=== PATIENT | female | born 1995 | race Caucasian/White ===

== ENCOUNTER 2020-02-01 20:49 | Emergency (ER) | payer MEDICAID, SELFPAY ==
[2020-02-01 20:52] VITALS: BP 137/90; PULSE 109; RESP 18; TEMP 36.1; O2SAT 99; BMI 26.7
--- NOTE | 2020-02-01 21:06 | ED.VIS.GEN ---
History of Present Illness Chief Complaint: Other, Pain/Inj Informant: Patient Narrative: Patient states that the end of last month she delivered a baby boy. She has an IV site on the right lateral forearm. She was discharged home on the . She states that yesterday January 30 she began to have pain firmness and redness around the site. She is worried she might have a blood clot. She went to another facility but states she was not seen because it was so busy. She notes that she was anemic when she entered the hospital but does not recall any problems with her platelets. No known clotting disorders. She is currently taking iron dose. No fever. Past Medical History - Allergies and Home Meds Allergies/Adverse Reactions: Allergies acetaminophen [From Percocet] Allergy (Verified 02/01/20 20:54) Itching latex Allergy (Verified 02/01/20 20:54) Hives oxycodone [From Percocet] Allergy (Verified 02/01/20 20:54) Itching Primary Care Physician: Abbey Hurley MD [Primary Care Provider] - Past Medical History: - - Noncontributory Surgical History: noncontributory Lives: With Family Smoking Status: Never smoker Drugs: None Review of Systems General: Denies: Chills, Fever, Sweats Eyes: Denies: Visual changes - bilaterally, Diplopia ENT: Denies: Rhinorrhea, Sore throat Cardiovascular: Denies: Chest pain, Palpitations Respiratory: Denies: Dyspnea, Cough, Dyspnea on exertion Gastrointestinal: Denies: Abdominal pain, Nausea, Vomiting, Diarrhea, Melena, Hematochezia Genitourinary: Denies: Dysuria, Hematuria, Frequency Musculoskeletal: Reports: Extremity Pain. Denies: Back pain Skin: Reports: Rash. Denies: Wounds Neurological: Denies: Headache, Weakness, Numbness Physical Exam Vital Signs/Narrative: Vital Signs Temp Pulse Resp BP Pulse Ox 02/01/20 20:52 97.0 F L 109 H 18 137/90 H 99 Inital Vital Signs reviewed: Yes General: Well nourished, Well developed, No Acute Distress Head: Normocephalic, Atraumatic Eyes: Perrl, EOMI ENT: Moist mucous membranes, No rhinorrhea Neck: Supple, Nontender Cardiovascular: Regular rate, Regular rhythm, No murmurs Respiratory: No distress, CTA bilaterally, Chest nontender Abdomen: Soft, Nontender, Nondistended, Normal bowel sounds Back: Nontender, Normal Inspection Extremities: No edema, - - There is a 2 cm long area of cord at her IV site. It is just proximal to the wrist. There is some mild erythema around it. Skin: Normal color, No rash Neurological: Alert, Oriented x3, Cranial nerves II-XII grossly intact, Normal Strength, Normal Sensation Psychological: Normal affect, Normal Mood Diagnostic/Tx/Re-eval - Medical Decision Making I explained to the patient that this is superficial thrombophlebitis. We talked about warm compresses and aspirin. He did have a conversation about infection and I am not completely opposed who keeping her mind at ease by giving her a few days of Keflex. She was given return instructions. ED Disposition - Plan for ED Patient: Disposition: Home or Assisted Living Diagnosis: Superficial thrombophlebitis of arm Instructions: ED Thrombophlebitis, Superficial Prescriptions: Cephalexin [Keflex] 500 mg PO Q12 #10 cap Prescription Printed Referrals: Abbey Hurley MD [Primary Care Provider] - As Needed Additional Instructions: Warm compresses every couple hours Full-strength aspirin once a day. Return if worsening or concerns.
[2020-02-01] MEDS: Cephalexin 250 MG Capsule 500 MG PO (21:29)
== END 2020-02-01 21:30 | disposition home or self-care (01) ==
LOC: ED 21:24
PROVIDERS: Emergency Provider Emergency Medicine
DX: I80.8 Phlebitis and thrombophlebitis of other sites (principal)
CPT/HCPCS: 99283

== ENCOUNTER 2022-02-02 17:54 | Emergency (ER) | payer MEDICAID, SELFPAY ==
[2022-02-02 17:55] VITALS: BP 128/89; PULSE 98; RESP 16; TEMP 36.6; O2SAT 98; BMI 21.2
--- NOTE | 2022-02-02 19:49 | EX.ED.DYSGE1 ---
HPI History of Present Illness Chief Complaint: Numb/Ting Narrative Narrative: Patient presents with gradual onset of headache, she also had some paresthesias at the time from the elbow to her fingers, she also had some numbness in her feet these have mostly resolved. She has a history of migraines and headaches and this feels the same. She has no vision changes. She has no nausea or vomiting or neck pain or stiffness. No fevers or chills. [facility] Medical History (Updated 02/02/22 @ 21:[address] Aneudy Olvera MD) Migraine Home Medications cephalexin 500 mg capsule 500 mg PO Q12 #10 caps 02/01/20 [Rx Last Taken Unknown] Allergy/AdvReac Type Severity Reaction Status Date / Time acetaminophen [From Percocet] Allergy Itching Verified 02/02/22 17:55 latex Allergy Hives Verified 02/02/22 17:55 oxycodone [From Percocet] Allergy Itching Verified 02/02/22 17:55 Social History Smoking Status: Never smoker ROS ROS ED ROS Narrative Past medical history: Reviewed Medications: Reviewed Social history: Noncontributory Review of systems: All systems negative except as indicated General: No fever Eyes: No visual changes ENT: No upper airway congestion, normal voice Neck: No neck pain Cardiovascular: No chest pain Respiratory: No shortness of breath or cough Gastrointestinal: No abdominal pain, nausea vomiting or diarrhea Genitourinary: No dysuria Musculoskeletal: Denies myalgias no difficulty with ambulation Skin: No rash Neurological: No memory loss, confusion or any focal weakness. Paresthesias which have resolved. Headache as in HPI. Psych: No recent behavioral changes Hematologic: No easy bleeding or easy bruising EXAM Physical Exam Narrative Exam Narrative: Physical exam General: Well nourished, Well developed, No Acute Distress Head: Normocephalic, Atraumatic Eyes: Conjunctiva not pale ENT: Moist mucous membranes Neck: Supple, Nontender, No lymphadenopathy Cardiovascular: Regular rate, Regular rhythm Respiratory: No distress, CTA bilaterally Abdomen: Soft, Nontender, Nondistended Back: Nontender, Normal Inspection. Negative for: CVA tenderness Extremities: Nontender, No edema Skin: Normal color, No rash Neurological: Alert, Normal Strength, Normal Sensation Psychological: Normal affect Const Vital Signs: 02/02/22 17:55 Temperature 97.9 F Temperature Source Temporal Pulse Rate 98 Respiratory Rate 16 Blood Pressure 128/89 H Blood Pressure Mean 102 Pulse Ox 98 Oxygen Delivery Method Room Air MDM MDM MDM Narrative Medical decision making narrative: Patient's work-up is negative. She has chronic recurrent cephalgia with a normal neurological exam I do not believe she needs head imaging. She significantly improved and she has no more headache and she has no neurological symptoms. She likely had an aura from her headache. She has not seen a neurologist and it sounds like she is getting headaches quite often I will refer her. Lab Data Labs: Laboratory Results - last 24 hr 02/02/22 02/02/22 20:01 20:01 WBC 5.4 RBC 4.30 Hgb 9.3 L Hct 31.4 L MCV 73.0 L MCH 21.6 L MCHC 29.6 L RDW Std Deviation 50.3 H RDW Coeff of Greg 19.3 H Plt Count 195 MPV TNP Immature Gran % (Auto) 0.200 Neut % (Auto) 59.2 Lymph % (Auto) 30.4 [place] % (Auto) 7.5 Eos % (Auto) 2.1 Baso % (Auto) 0.6 Absolute Neuts (auto) 3.2 Absolute Lymphs (auto) 1.63 Nucleated RBC % 0 Sodium 140 Potassium 3.5 Chloride 108 H Carbon Dioxide 27.0 Anion Gap 5 BUN 12 Creatinine 0.70 Estim Creat Clear Calc 85.94 Est GFR (MDRD) Af Amer 128 Est GFR (MDRD) Non-Af 106 BUN/Creatinine Ratio 17.2 Glucose 100 Calcium 9.2 Total Bilirubin 0.80 AST 22 ALT 39 Alkaline Phosphatase 70 Total Protein 7.6 Albumin 4.0 Globulin 3.6 Albumin/Globulin Ratio 1.1 Discharge Plan Triage Chief Complaint: Numb/Ting ED Provider: Aneudy Olvera Dx/Rx/DC Orders Clinical Impression: Headache, Migraine with aura Instructions: Migraine Triggers Prescriptions: No Action cephalexin 500 MG capsule 500 mg PO Q12 Qty: 10 0RF Primary Care Provider: Abbey Hurley Referrals: Abbey Hurley MD [Primary Care Provider] - Uli Wong MD [Non-Staff] - 3-5 Days Disposition Disposition: Home, Self Care
[2022-02-02] MEDS: Ketorolac 15 MG/ML Vial IV (20:10)
[2022-02-02] MEDS: Metoclopramide 10 MG/2 ML Vial 5 MG IV (20:11)
[2022-02-02] MEDS: DiphenhydrAMINE 50 MG/ML Syringe 25 MG IV (20:11)
[2022-02-02] MEDS: 0.9% Normal Saline 1,000 ML 1000 ML IV (20:11)
[2022-02-02 20:30] LABS: Absolute Lymphocyte Count 1.63 X10^3/uL (0.83-4.51); Absolute Neutrophil Count 3.2 X10^3/uL (2.0-7.7); Basophil# 0.03 X10^3/uL; Basophil% 0.6 % (0-1); Eosinophil# 0.11 X10^3/uL; Eosinophils% 2.1 % (0-5); Hematocrit 31.4 % (37-47); Hemoglobin 9.3 g/dL (12.0-15.0); Lymphocyte # 1.63 X10^3/ul (0.83-4.51); Lymphocyte % 30.4 % (19-41); Mean Corp Hgb Conc 29.6 g/dL (32-36); Mean Corpuscular Hgb 21.6 pg (27.0-32.0); Monocyte% 7.5 % (0-10); NRBC Flagged by Analyzer 0 % (0-5); Neutrophil # 3.18 X10^3/uL (2.7-7.7); Neutrophil % 59.2 % (47-70); Platelet Count 195 K/mm3 (150-450); RBC Distribution Width CV 19.3 % (11.6-14.6); RBC Distribution Width SD 50.3 fl (35.1-43.9); White Blood Count 5.4 K/mm3 (4.4-11.0)
[2022-02-02 20:36] LABS: POSITIVE COUNT NO; POSITIVE DIFFERENTIAL NO; POSITIVE MORPHOLOGY NO
[2022-02-02 20:53] LABS: ALB/GLOB Ratio 1.1 RATIO (0.9-2.4); AST(SGOT) 22 U/L (15-37); Alanine Aminotransfer ALT/SGPT 39 U/L (13-56); Alkaline Phosphatase 70 U/L (45-117); Anion Gap 5 (5-15); BUN 12 mg/dL (7-18); BUN/Creat Ratio 17.2 RATIO (10-20); Calcium,Total 9.2 mg/dL (8.5-10.1); Chloride 108 mmol/L (98-107); EST Glomerular Filtration Rate 106 mL/min (>60); Est Glom Filt Rate - Afr Amer 128 mL/min (>60); Estimated Creatinine Clearance 85.94 ml/min; Globulin 3.6 g/dL (2.2-4.2); Glucose 100 mg/dL (74-106); Potassium 3.5 mmol/L (3.5-5.1); Protein, Total 7.6 g/dL (6.4-8.2); Sodium Level 140 mmol/L (136-145)
[2022-02-02 22:04] VITALS: BP 125/78; PULSE 79; RESP 15; O2SAT 99
== END 2022-02-02 22:08 | disposition home or self-care (01) ==
PROVIDERS: Emergency Provider Emergency Medicine; PCP Family Medicine; Visit Provider Emergency Medicine
DX: G43.109 Migraine with aura, not intractable, without status migrainosus (principal)
CPT/HCPCS: 80053; 85025; 96361; 96374; 96375; 99284; J7030; A4216